=== PATIENT | female | born 1955 | race Caucasian/White ===

== ENCOUNTER → 2020-09-13 | Day surgery (SDC) | payer OTHER ==
[~2020-09-13] VITALS: Ht 152 cm; Wt 76.8 kg
[~2020-09-13] MED LIST: ACETAMINOPHEN500 M1 PO; BACLOFEN 10MG T10 MG PO; CITALOPRAM HBR20 MG PO; COLACE100 MG PO; FEOSOL325 MG PO; LIPITOR 10MG TA10 MG PO; MOTRIN600 MG PO; NORCO 5-325 TA1 EACH PO; OXY-IR 5MG5 MG PO; PHENERGAN12.5 M1 PO; PRILOSEC20 MG PO; VITAMIN D21250 MCG PO; XARELTO10 MG PO; ZOFRAN4 MG PO; [UNRECOGNIZED DRUG - OTHER] PO
[2020-09-13 09:19] LABS: HCT 38.3 % (37.0-47.0); HGB 12.4 g/dl (12.5-16.0); MCH 29.6 pg (25.0-31.0); MCHC 32.4 g/dL (32.0-36.0); MCV 91.4 fL (78.0-100.0); MPV 8.9 fL (6.0-9.5); RBC 4.19 M/uL (4.20-5.40); RDW 13.4 % (11.5-14.0); WBC 5.6 K/uL (4.0-10.5)
[2020-09-13 09:30] LABS: ALBUMIN 3.7 g/dL (3.4-5.0); BILIRUBIN - TOTAL 0.5 mg/dL (0.2-1.0); BUN/CREAT RATIO (CALC) 10.6 RATIO; CREATININE 0.85 mg/dL (0.51-0.95); GLOBULIN (CALCULATION) 4.4 g/dL; POTASSIUM 4.2 mmol/L (3.5-5.1); TOTAL PROTEIN 8.1 g/dL (6.4-8.2)
== END | disposition home or self-care (01) ==
LOC: FAS 08:40
PROVIDERS: Student in an Organized Health Care Education/Training Program
DX: D12.8 Benign neoplasm of rectum (principal); K29.50 Unspecified chronic gastritis without bleeding; K64.8 Other hemorrhoids; K57.30 Diverticulosis of large intestine without perforation or abscess without bleeding; K44.9 Diaphragmatic hernia without obstruction or gangrene; K64.4 Residual hemorrhoidal skin tags; K21.9 Gastro-esophageal reflux disease without esophagitis; F41.9 Anxiety disorder, unspecified; F32.9 Major depressive disorder, single episode, unspecified; E78.00 Pure hypercholesterolemia, unspecified; E87.5 Hyperkalemia; Z88.1 Allergy status to other antibiotic agents; Z96.659 Presence of unspecified artificial knee joint; R63.4 Abnormal weight loss; K82.4 Cholesterolosis of gallbladder; Z88.5 Allergy status to narcotic agent; Z87.891 Personal history of nicotine dependence
CPT/HCPCS: 36415; 80053; 82150; 83690; J1610; J2704; J7120

== ENCOUNTER → 2020-10-02 | Day surgery (SDC) | payer OTHER ==
[~2020-10-02] VITALS: Ht 152.4 cm; Wt 74.5 kg
[2020-10-02 09:42] LABS: BUN/CREAT RATIO (CALC) 20.2 RATIO; CREATININE 0.94 mg/dL (0.51-0.95); POTASSIUM 3.9 mmol/L (3.5-5.1)
== END | disposition home or self-care (01) ==
LOC: FAS 08:39
PROVIDERS: Anesthesiology
DX: K81.1 Chronic cholecystitis (principal); D12.8 Benign neoplasm of rectum; K57.30 Diverticulosis of large intestine without perforation or abscess without bleeding; K44.9 Diaphragmatic hernia without obstruction or gangrene; K21.9 Gastro-esophageal reflux disease without esophagitis; E78.5 Hyperlipidemia, unspecified; F41.9 Anxiety disorder, unspecified; M19.90 Unspecified osteoarthritis, unspecified site; Z88.1 Allergy status to other antibiotic agents; Z88.5 Allergy status to narcotic agent; Z79.899 Other long term (current) drug therapy
CPT/HCPCS: 36415; 80048; 93005; J0690; J1644; J2405; J2550; J2704; J2710; J3010; J7120

== ENCOUNTER 2021-07-11 09:56 | Emergency (ER) | payer OTHER ==
[2021-07-11 10:50] LABS: BASOPHIL 0.6 % (0-2); EOSINOPHIL 1.8 % (0-7); HCT 37.5 % (37.0-47.0); HGB 12.1 g/dl (12.5-16.0); LYMPHOCYTE 20.8 % (15-48); MCHC 32.3 g/dL (32.0-36.0); MCV 92.8 fL (78.0-100.0); MONOCYTE 5.9 % (0-12); MPV 8.4 fL (6.0-9.5); NEUTROPHIL 70.6 % (41-80); NRBC 0; PLT 310 K/uL (150-400); RBC 4.04 M/uL (4.20-5.40); RDW 13.3 % (11.5-14.0); WBC 6.8 K/uL (4.0-10.5)
[2021-07-11 11:09] LABS: ALBUMIN 3.6 g/dL (3.4-5.0); BILIRUBIN - TOTAL 0.4 mg/dL (0.2-1.0); BUN/CREAT RATIO (CALC) 18.8 RATIO; CREATININE 0.96 mg/dL (0.51-0.95); POTASSIUM 4.2 mmol/L (3.5-5.1); TOTAL PROTEIN 7.6 g/dL (6.4-8.2)
[2021-07-11] MEDS ORDERED: MOBIC7.5 MG PO (14:10)
== END 2021-07-11 14:28 | disposition home or self-care (01) ==
LOC: FER 09:56
PROVIDERS: Emergency Medicine
DX: K21.9 Gastro-esophageal reflux disease without esophagitis (principal); K44.9 Diaphragmatic hernia without obstruction or gangrene; I10 Essential (primary) hypertension; Z87.891 Personal history of nicotine dependence; Z88.5 Allergy status to narcotic agent; Z88.6 Allergy status to analgesic agent
CPT/HCPCS: 36415; 71045; 80053; 84484; 85025; J1885